=== PATIENT | male | born 1965 | race Caucasian/White ===

== ENCOUNTER 2018-02-19 10:19 | Emergency (ER) | payer OTHER ==
[~2018-02-19] VITALS: Ht 170.2 cm; Wt 81.6 kg
[~2018-02-19 10:19] MED LIST: HYDR-971 PO; TAMS0.4C97 PO
[2018-02-19 10:20] VITALS: BP 180/99
--- NOTE | 2018-02-19 11:22 | RAD ---
EXAM: 3 views left shoulder DATE: 02/19/2018 10:40 AM CLINICAL INDICATION: PAIN TO LEFT SHOULDER AFTER FALLING ON IT MONDAY COMPARISON: None. FINDINGS: There is no acute fracture or dislocation. Minimal AC joint and glenohumeral joint degenerative changes are seen with small associated osteophytes. Humeral head is not high riding. Left lung calcified granuloma especially profile. IMPRESSION: There is no acute fracture or dislocation. Electronically signed by: Nitish Arce MD (02/19/2018 11:18 AM) [facility]
[2018-02-19] MEDS ORDERED: IBUPROFEN 600 MG TABLET. PO ONE (11:30)
--- NOTE | 2018-02-19 12:07 | RAD ---
Examination: 3 views of the left elbow HISTORY: History of fall, pain COMPARISON: None available FINDINGS: The alignment of the elbow joint grossly appears unremarkable.There is no obvious acute fracture or dislocation identified. No significant elbow joint effusion identified. IMPRESSION: No acute osseous findings. If pain persists, follow-up radiograph is recommended in 5-7 days. Electronically signed by: Ajay Ovalles MD (02/19/2018 12:03 PM) [id number]
--- NOTE | 2018-02-19 12:27 | PHYS DOC ---
Past Medical History Past Medical History: Kidney Stone Past Surgical History: Other Additional Past Surgical Histo: R. ARM Alcohol Use: Occasionally Drug Use: None Adult General Chief Complaint Chief Complaint: SHOULDER INJURY HPI HPI Patient is a 52 year old [f__sex] who presents with [] Review of Systems Review of Systems Constitutional: Denies fever or chills [] Eyes: Denies change in visual acuity, redness, or eye pain [] HENT: Denies nasal congestion or sore throat [] Respiratory: Denies cough or shortness of breath [] Cardiovascular: No additional information not addressed in HPI [] GI: Denies abdominal pain, nausea, vomiting, bloody stools or diarrhea [] : Denies dysuria or hematuria [] Musculoskeletal: Denies back pain or joint pain [] Integument: Denies rash or skin lesions [] Neurologic: Denies headache, focal weakness or sensory changes [] Endocrine: Denies polyuria or polydipsia [] All other systems were reviewed and found to be within normal limits, except as documented in this note. Current Medications Current Medications Current Medications Medications (Trade) Dose Ordered Sig/Lila Start Time Stop Time Status Last Admin Dose Admin Ibuprofen (Motrin) 600 mg 1X ONCE 02/19/18 11:30 02/19/18 11:31 DC 02/19/18 11:33 600 MG Allergies Allergies Allergies Coded Allergies Type Severity Reaction Last Updated Verified Penicillins Allergy Intermediate 03/27/16 Yes Physical Exam Physical Exam Constitutional: Well developed, well nourished, no acute distress, non-toxic appearance. [] HENT: Normocephalic, atraumatic, bilateral external ears normal, oropharynx moist, no oral exudates, nose normal. [] Eyes: PERRLA, EOMI, conjunctiva normal, no discharge. [] Neck: Normal range of motion, no tenderness, supple, no stridor. [] Cardiovascular:Heart rate regular rhythm, no murmur [] Lungs & Thorax: Bilateral breath sounds clear to auscultation [] Abdomen: Bowel sounds normal, soft, no tenderness, no masses, no pulsatile masses. [] Skin: Warm, dry, no erythema, no rash. [] Back: No tenderness, no CVA tenderness. [] Extremities: No tenderness, no cyanosis, no clubbing, ROM intact, no edema. [] Neurologic: Alert and oriented X 3, normal motor function, normal sensory function, no focal deficits noted. [] Psychologic: Affect normal, judgement normal, mood normal. [] Current Patient Data Vital Signs Vital Signs Date Time Temp Pulse Resp B/P (MAP) Pulse Ox O2 Delivery O2 Flow Rate FiO2 02/19/18 10:20 97.9 86 16 180/99 (126) 98 Room Air 97.9 EKG EKG [] Radiology/Procedures Radiology/Procedures [] Course & Med Decision Making Course & Med Decision Making Pertinent Labs and Imaging studies reviewed. (See chart for details) [] Dragon Disclaimer Dragon Disclaimer This electronic medical record was generated, in whole or in part, using a voice recognition dictation system. Departure Departure Impression: Primary Impression: Sprain of shoulder, left Additional Impression: Injury of elbow, left Disposition: 01 HOME, SELF-CARE Condition: STABLE Referrals: NANDINI LANDA MD (PCP) Patient Instructions: Arm Sling Use, [id number], Elbow Contusion, Shoulder Sprain Additional Instructions: Wear sling and jaxon wrap for support of your left shoulder and elbow. Ice packs every 3-4 hours to affected area. Tylenol and/or ibuprofen for pain control. If symptoms persist follow-up with orthopedic advised. Problem Qualifiers MIGUEL A CLEANING APRN Feb 19, 2018 12:27
== END 2018-02-19 12:33 | disposition home or self-care (01) ==
LOC: ER 10:19
DX: S43.402A Unspecified sprain of left shoulder joint, initial encounter (principal); S59.902A Unspecified injury of left elbow, initial encounter; Z88.0 Allergy status to penicillin; W18.39XA Other fall on same level, initial encounter; Y93.89 Activity, other specified; Y92.89 Other specified places as the place of occurrence of the external cause; Y99.8 Other external cause status
CPT/HCPCS: 73030; 73080; 99284